=== PATIENT | female | born 1945 | race Caucasian/White ===

== ENCOUNTER 2016-03-18 08:08 | Outpatient (CLI) ==
[2014-03-02 17:41] VITALS: BMI 25.2
[2016-03-18 09:52] LABS: CHOL/HDL RATIO 3.5 (4.5-5.5)
== END 2016-03-18 08:09 | disposition home or self-care (01) ==
LOC: LAB 08:08
PROVIDERS: ATTEND Internal Medicine Cardiovascular Disease
DX: E78.2 Mixed hyperlipidemia (principal)
CPT/HCPCS: 36415; 80061; 84450; 84460

== ENCOUNTER 2016-04-24 09:11 | Outpatient (CLI) | payer OTHER ==
[2014-03-02 17:41] VITALS: BMI 25.2
[2016-04-24] MEDS ORDERED: PROLIA SUBCUT STA (09:25)
[2016-04-24 09:32] VITALS: BP 148/69; TEMP 98.5
== END 2016-04-24 09:12 | disposition home or self-care (01) ==
LOC: OPMED 09:11
PROVIDERS: ATTEND Family Medicine
DX: M81.0 Age-related osteoporosis without current pathological fracture (principal)
CPT/HCPCS: 96372

== ENCOUNTER 2016-05-20 14:56 | Emergency (ER) | payer OTHER ==
[2016-05-20 15:05] VITALS: BP 133/68; TEMP 99.4; BMI 25.6
[2016-05-20] MEDS ORDERED: LIDOCAINE 1 % AMP 5 ML (SUTURES) SUBCUT STA (15:37)
--- NOTE | 2016-05-20 15:43 | DI ---
EXAM: Right finger first digit three-view HISTORY: Right thumb laceration at the MCP with decreased range of motion COMPARISON: None FINDINGS: No fracture or dislocation. Moderate osteoarthritis first CMC and mild scattered osteoar thritis throughout the visualized hand. Soft tissue laceration suggested about the first digit. No r adiopaque foreign body. IMPERSSION: 1. No fracture or dislocation. 2. Osteoarthritis 3. Soft tissue laceration suggested about the first digit. No radiopaque foreign body.
[2016-05-20] MEDS ORDERED: BOOSTRIX IM ONE (16:04)
--- NOTE | 2016-05-20 16:30 | ED.PDOC ---
General ED Provider: Dr. MELISSA LARKIN JR Chief Complaint: Laceration Stated Complaint: cleaning grill this am with scraper--metal part of scraper cut on rt thumb--bleeding controlled--was at work when lac occured-. [ End ] 1100 99.4 86 20 94 133/68 8/10 lac to thumb Time Seen by Physician: 15:20 Mode of Arrival: Walk-In Information Source: Patient Exam Limitations: No limitations Primary Care Provider: JOHNNY YOUNG Nursing and Triage Documentation Reviewed and Agree: No Review of Systems - Review Of Systems Constitutional: Reports: No symptoms Eyes: Reports: No symptoms Ears, Nose, Mouth, Throat: Reports: No symptoms Respiratory: Reports: No symptoms Cardiac: Reports: No symptoms GI: Reports: No symptoms : Reports: No symptoms Musculoskeletal: Reports: No symptoms Skin: Reports: Lesions (right thumb lateral MCP) Neurological: Reports: Weakness (decreased strength of thumbabduction nonfocal but painful resisted rom full prom) Endocrine: Reports: No symptoms Hematologic/Lymphatic: Reports: No symptoms All Other Systems: Other Past Medical History - Past Medical History Endocrine: Reports: None Cardiovascular: Reports: CAD, Hypertension Respiratory: Reports: None Hematological: Reports: None Gastrointestinal: Reports: None Genitourinary: Reports: None Neuro/Psych: Reports: None Musculoskeletal: Reports: None Cancer: Reports: None Last Menstrual Period: hysterectomy - Surgical History General Surgical History: Reports: Hysterectomy, , Cholecystectomy, Tonsillectomy, Hernia Repair, Stent Placement - Family History Family History: Reports: Unknown - Social History Smoking Status: Current every day smoker, Heavy tobacco smoker Hx Substance Use: No Alcohol Screening: None - Immunizations Tetanus Shot up to Date: No Physical Exam - Physical Exam Appearance: Well-appearing Pain Distress: Mild Neck: Supple Respiratory: Airway patent Musculoskeletal: Limited strength Skin: Warm Neurological: Motor intact Psychiatric: Affect appropriate, Mood appropriate Critical Care Note - Critical Care Note Total Time (mins): 0 Course - Course Orders, Labs, Meds: Orders Category Date Time Status Diphth,Pertuss(Acell),Tet Vac [Boostrix] MEDS 05/20/16 16:04 Discontinued 0.5 ml IM .ONCE ONE Lidocaine HCl/Pf [Lidocaine 1 % Amp 5 ml (Sutures)] MEDS 05/20/16 15:37 Discontinued 5 ml SUBCUT ONCE STA FINGER(S) RIGHT MIN 2V Stat RADS 05/20/16 15:22 Completed Medications Discontinued Medications Generic Name Dose Route Start Last Admin Trade Name Alize PRN Reason Stop Dose Admin Diphtheria/Pertussis/Tetanus Vacc 0.5 ml 05/20/16 16:04 05/20/16 16:15 Boostrix IM 05/20/16 16:05 0.5 ml .ONCE ONE Administration Lidocaine HCl 5 ml 05/20/16 15:37 05/20/16 15:48 Lidocaine 1 % Amp 5 Ml (Sutures) SUBCUT 05/20/16 15:38 5 ml ONCE STA Administration Vital Signs: Temp Pulse Resp BP Pulse Ox 05/20/16 14:56 99.4 F 86 20 133/68 94 L Departure - Departure Time of Disposition: 16:25 Disposition: HOME SELF-CARE Discharge Problem: Laceration - injury, Finger laceration with complication Instructions: Finger Laceration (ED) Condition: Good Pt referred to PMD for follow-up: Yes Additional Instructions: call PMD about thumb weakness no definite tendon laceration or other deep injuries on exam pain is out of expected for this injury discuss orthopedic or hand surgery referral for pain and weakness right thumb [place] for pain not controlled by Tylenol avoid NSAIDS for 1 week limit use of hand for one week ckean and dry for three days return if worse, if redness drainage or increased pain ice 20 minutes three ties a day elevate one hour twice a day Prescriptions: Hydrocodone Bit/Acetaminophen [[place] 5-325] 1 - 2 tab PO Q6HR PRN #12 tablet PRN Reason: pain Allergies/Adverse Reactions: Allergies levofloxacin [From Levaquin] Adverse Reaction (Verified 05/20/16 15:05) propoxyphene HCl [From Darvon] Adverse Reaction (Verified 05/20/16 15:05) Home Medications: Ambulatory Orders Aspirin [Aspirin Chewable] 81 mg PO DAILYWM 09/16/12 Calcium Carbonate [Calcium] 600 mg PO DAILY 09/16/12 Multivit-Min/FA/Lycopene/Lut [Centrum Silver Tablet] 1 each PO DAILY 09/16/12 Denosumab [Prolia] 60 mg SQ DIRECTED 03/02/14 Fluticasone Propionate [Flonase] 1 spray NS BID 03/02/14 Gabapentin [Neurontin] 100 mg PO TID 03/02/14 Hydrocodone Bit/Acetaminophen [[place] 5-325] 1 tab PO Q8HR PRN 03/02/14 Montelukast Sodium [Singulair] 10 mg PO BEDTIME 03/02/14 Tamoxifen Citrate 40 mg PO DAILY 03/02/14 Albuterol Sulfate [Proair Hfa] 03/19/15 Atorvastatin Calcium 03/19/15 Bupropion HCl [Wellbutrin] 03/19/15 Duloxetine HCl 03/19/15 Furosemide [Lasix] 03/19/15 Lisinopril 03/19/15 Metoprolol Succinate 03/19/15 Nitroglycerin [Nitrostat] 03/19/15 Prasugrel HCl [Effient] 03/19/15 Hydrocodone Bit/Acetaminophen [[place] 5-325] 1 - 2 tab PO Q6HR PRN #12 tablet 12/26
== END 2016-05-20 16:44 | disposition home or self-care (01) ==
LOC: ED 14:56
DX: S61.011A Laceration without foreign body of right thumb without damage to nail, initial encounter (principal); R53.1 Weakness; W45.8XXA Other foreign body or object entering through skin, initial encounter; Y99.0 Civilian activity done for income or pay; F17.210 Nicotine dependence, cigarettes, uncomplicated
CPT/HCPCS: 90471; 99282

== ENCOUNTER 2016-09-22 09:20 | Outpatient (CLI) ==
--- NOTE | 2016-09-22 09:53 | DI ---
EXAM: PA and lateral views of the chest HISTORY: Breast cancer COMPARISON: Chest x-ray 03/24/2014 and multiple priors FINDINGS: The cardiomediastinal silhouette is normal. There is no pneumothorax or pleural effusion . There is no consolidation, nodule or mass. Calcified granuloma in the left upper lobe is unchang ed. There is mild hyperinflation. The osseous structures demonstrate minimal degenerative change. There are surgical clips in the upper abdomen. IMPRESSION: 1. No acute consolidation or cardiopulmonary process. 2. Mild hyperinflation suggestive of obstructive pulmonary physiology.
== END 2016-09-22 09:21 | disposition home or self-care (01) ==
LOC: RAD 09:20
PROVIDERS: ATTEND Internal Medicine Hematology & Oncology
DX: C50.411 Malignant neoplasm of upper-outer quadrant of right female breast (principal)

== ENCOUNTER 2017-01-05 11:04 | Outpatient (CLI) ==
--- NOTE | 2017-01-05 11:52 | MAMMO ---
EXAM: Left digital screening mammogram (2-D and 3-D) History: Screening Comparison: Left-sided mammogram 12/24/2015 Findings: MLO and CC views of bilateral breasts demonstrate predominately fatty replaced breast pare nchyma. CAD was reviewed by the radiologist. Tomosynthesis was performed. Stable benign lymph node s within the upper-outer quadrant of the left breast. There are no dominant masses, no suspicious mi crocalcifications and no architectural distortions Impression: Benign stable mammogram. Recommend followup routine screening mammography in 1 year. BIRADS 2
== END 2017-01-05 11:05 | disposition home or self-care (01) ==
LOC: RAD 11:04
PROVIDERS: ATTEND Internal Medicine Hematology & Oncology
DX: Z12.31 Encounter for screening mammogram for malignant neoplasm of breast (principal)

== ENCOUNTER 2017-07-08 11:53 | Outpatient (CLI) ==
[2017-07-08 12:08] VITALS: BP 127/72; TEMP 98
[2017-07-08] MEDS ORDERED: PROLIA SUBCUT STA (12:08)
== END 2017-07-08 11:54 | disposition home or self-care (01) ==
LOC: OPMED 11:53
PROVIDERS: ATTEND Family Medicine
DX: M81.0 Age-related osteoporosis without current pathological fracture (principal)
CPT/HCPCS: 96372

== ENCOUNTER 2018-04-08 12:41 | Outpatient (CLI) ==
--- NOTE | 2018-04-08 13:10 | DI ---
EXAM: Two views of the chest. History: Cough. Comparison: Chest radiograph 09/22/2016 Findings: Heart size is normal. No focal consolidation. No appreciable pleural fluid and no pneumo thorax. No acute osseous abnormalities. Calcified granuloma again seen within the right upper lobe. Atherosclerotic vascular calcifications of the aortic knob. Impression: No acute cardiopulmonary process
--- NOTE | 2018-04-09 11:54 | MAMMO ---
EXAM: Left digital screening mammogram (2-D and 3-D) History: Screening Comparison: Left mammogram 01/05/2017 Findings: MLO and CC views of left breast demonstrate predominately fatty replaced breast parenchyma . CAD was reviewed by the radiologist. Tomosynthesis was performed. Stable benign lymph nodes with in the upper-outer quadrant of the left breast. There are no dominant masses, no suspicious microcal cifications and no architectural distortions Impression: Benign stable mammogram. Recommend followup routine screening mammography in 1 year. BIRADS 2, benign
== END 2018-04-08 12:42 | disposition home or self-care (01) ==
LOC: RAD 12:41
PROVIDERS: ATTEND Family Medicine
DX: Z12.31 Encounter for screening mammogram for malignant neoplasm of breast (principal); R05 Cough; Z90.11 Acquired absence of right breast and nipple

== ENCOUNTER 2018-06-10 13:35 | Outpatient (CLI) ==
[2018-06-10 13:52] VITALS: BP 134/62; TEMP 97.4
[2018-06-10] MEDS ORDERED: PROLIA SUBCUT STA (14:06)
== END 2018-06-10 13:36 | disposition home or self-care (01) ==
LOC: OUTPT 13:35
PROVIDERS: ATTEND Family Medicine
DX: M81.0 Age-related osteoporosis without current pathological fracture (principal)
CPT/HCPCS: 96372

== ENCOUNTER 2018-08-03 15:03 | Outpatient (CLI) | END 2018-08-03 15:04 | disposition home or self-care (01) | LOC: LAB 15:03 | PROVIDERS: ATTEND Family Medicine | DX: R30.0 Dysuria (principal) | CPT/HCPCS: 81001; 87086 ==

== ENCOUNTER 2018-10-16 19:36 | Outpatient (CLI) | END 2018-10-16 19:49 | disposition short-term general hospital (02) | LOC: AMBL 19:36 | PROVIDERS: ATTEND Internal Medicine Geriatric Medicine | DX: S00.11XA Contusion of right eyelid and periocular area, initial encounter (principal); W19.XXXA Unspecified fall, initial encounter; S09.92XA Unspecified injury of nose, initial encounter; M79.622 Pain in left upper arm; R52 Pain, unspecified; R07.81 Pleurodynia ==